=== PATIENT | female | born 1975 | race African-American/Black ===

== ENCOUNTER 2022-04-05 16:51 | Emergency (ER) | payer OTHER, SELFPAY | END 2022-04-05 18:15 | disposition home or self-care (01) | LOC: CSHERS 16:51 | DX: S39.012A Strain of muscle, fascia and tendon of lower back, initial encounter (principal); I10 Essential (primary) hypertension; V89.2XXA Person injured in unspecified motor-vehicle accident, traffic, initial encounter | CPT/HCPCS: 99283 ==